=== PATIENT | male | born 1985 | race Two or more races ===

== ENCOUNTER 2024-03-01 19:28 | Emergency (ER) | payer MEDICAID, SELFPAY ==
[2024-03-01 20:09] VITALS: BP 144/94; PULSE 87; RESP 18; TEMP 36.6; O2SAT 99
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
[2024-03-01 20:39] LABS: Basophils # (Auto) 0.1 Thou/mm3 (0.0-0.2); Basophils % (Auto) 1 % (0-2.5); Eosinophils # (Auto) 0.2 Thou/mm3 (0.0-0.5); Eosinophils % (Auto) 3 % (0-10); Hematocrit 46.6 % (41.0-53.0); Hemoglobin 15.9 g/dL (13.5-16.0); Immature Granulocytes % (Auto) 0 % (0-0); Immature Granulocytes Auto 0.01 Thou/mm3 (0.00-0.00); Lymphocytes # (Auto) 2.5 Thou/mm3 (1.0-4.8); Lymphocytes % (Auto) 31 % (10-50); Mean Corpuscular HGB Conc 34.1 g/dl (31.0-37.0); Mean Corpuscular Hemoglobin 29.4 pg (25.0-35.0); Mean Corpuscular Volume 86 fL (80-100); Monocytes # (Auto) 0.6 Thou/mm3 (0.0-0.8); Monocytes % (Auto) 8 % (0-12); Neutrophils # (Auto) 4.6 Thou/mm3 (1.8-7.7); Neutrophils % (Auto) 58 % (37-80); Nucleated Red Blood Cell % 0 /100 WBC (0); Platelet Count 259 Thou/mm3 (140-440); RDW Standard Deviation 38.5 fL (35.1-43.9)
[2024-03-01 20:58] LABS: INR 1.1 (0.9-1.3); Partial Thromboplastin Time 27.5 Seconds (22.0-36.0); Prothrombin Time 11.7 Seconds (9.0-12.2)
[2024-03-01 21:12] LABS: Alanine Aminotransferase 69 U/L (10-49); Albumin, Serum 5.1 gm/dL (3.5-5.0); Albumin/Globulin Ratio 1.8 (1.2-2.2); Alkaline Phosphatase 129 U/L (46-116); Anion Gap 7 (7-16); Aspartate Amino Transferase 23 U/L (0-34); BUN/Creatinine Ratio 9 Ratio (12-20); Bilirubin,Total 0.5 mg/dL (0.3-1.2); Blood Urea Nitrogen 9 mg/dL (9-23); Calcium 10.1 mg/dL (8.3-10.6); Calcium (Corrected) 10.1 mg/dL (8.5-10.1); Carbon Dioxide 27.5 mMol/L (20.0-31.0); Chloride 103 mMol/L (98-107); Estimated Creatinine Clearance 144.1 mL/min (>60); Globulin 2.9 gm/dL (2.3-3.5); Glucose 112 mg/dL (74-106); Osmolality,Calculated 273 (275-295); Sodium 137 mMol/L (136-145); eGFR > 60 See Note
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
[2024-03-01 22:12] LABS: OBS Card Lot # 23001; OBS Developer Lot # 23003; OBS Performed By boted; OBS QC OK? Yes; Occult Blood, Stool Positive (Negative)
[2024-03-02 00:41] VITALS: BP 121/77; PULSE 61; RESP 16; TEMP 36.7; O2SAT 99
== END 2024-03-02 00:42 | disposition home or self-care (01) ==
PROVIDERS: Physician Assistant; Emergency Provider Emergency Medicine
DX: K64.8 Other hemorrhoids (principal); K92.1 Melena
CPT/HCPCS: 36415; 74177; 80053; 82270; 85025; 85610; 85730; 99285; A4649; Q9967

== ENCOUNTER 2024-10-27 00:02 | Emergency (ER) | payer MEDICAID, SELFPAY ==
[2024-10-27 00:04] VITALS: BMI 35.8
[2024-10-27 00:23] VITALS: BP 134/89; PULSE 89; RESP 18; TEMP 37.3; O2SAT 96
--- NOTE | 2024-10-27 00:26 | XR_ITS ---
Examination: CT abdomen and pelvis without contrast. Coronal 3-D reconstructions. Sagittal 2-D reconstructions. Date and time of exam:October 27, 2024 0106 hours Comparison March 01, 2024. INDICATIONS: Blood in the stool with abdominal pain beginning one month ago CTDI: vol (mGy): 10.81 DLP: (mGycm): 702. Technique: Axial images of the abdomen have been obtained, 3 mm slice thickness Intravenous contrast material has not been administered. Low dose protocols were performed. One or more of the following dose reduction techniques were used; automated exposure control, adjustment of the mA and/or KV according to patient size, use of iterative reconstruction technique. Findings: Fatty infiltration throughout the liver, liver is mildly irregular in contour The spleen is not enlarged Contracted gallbladder No pancreatic or adrenal mass. No renal or ureteral calculi, no hydronephrosis Aorta normal size Normal appendix Moderate stool throughout the colon, no nonspecific colitis pattern Negative for diverticulitis Rectal wall does not show thickening No prostatomegaly Transpedicular lumbar fusion L4-S1 with disc spacers Impression : Moderate stool throughout the colon. Negative for colitis or proctitis pattern
[2024-10-27 01:03] LABS: Collection Type, Urine Clean Catch
[2024-10-27 01:08] LABS: Bilirubin,Urine Negative (Negative); Blood,Urine Negative (Negative); Clarity,Urine Clear (Clear/Hazy); Color,Urine Yellow (Lt Yel-Yel); Glucose, Urine Negative (Negative); Ketones,Urine Negative (Negative); Leukocyte Esterase,Urine Negative (Negative); Nitrite,Urine Negative (Negative); PH,Urine 6.0 (5.0-7.0); Protein,Urine Trace (Neg - Trace); RBC,Urine 3 /hpf (0-3); Specific Gravity,Urine 1.029 (1.001-1.035); Squamous Epithelial Cell,Urine < 1 /hpf (0-5); Urobilinogen,Urine Negative mg/dL (0.0-1.0); WBC,Urine 1 /hpf (0-5)
[2024-10-27 01:30] LABS: Basophils # (Auto) 0.0 Thou/mm3 (0.0-0.2); Basophils % (Auto) 1 % (0-2.5); Eosinophils # (Auto) 0.3 Thou/mm3 (0.0-0.5); Eosinophils % (Auto) 4 % (0-10); Hematocrit 44.1 % (41.0-53.0); Hemoglobin 14.4 g/dL (13.5-16.0); Immature Granulocytes Auto 0.02 Thou/mm3 (0.00-0.00); Lymphocytes # (Auto) 2.5 Thou/mm3 (1.0-4.8); Lymphocytes % (Auto) 31 % (10-50); Mean Corpuscular HGB Conc 32.7 g/dl (31.0-37.0); Mean Corpuscular Hemoglobin 27.9 pg (25.0-35.0); Mean Corpuscular Volume 85 fL (80-100); Monocytes # (Auto) 0.7 Thou/mm3 (0.0-0.8); Monocytes % (Auto) 9 % (0-12); Neutrophils # (Auto) 4.4 Thou/mm3 (1.8-7.7); Neutrophils % (Auto) 55 % (37-80); Nucleated Red Blood Cell # 0.00 Thou/mm3 (0.00-0.00); Nucleated Red Blood Cell % 0 /100 WBC (0); Platelet Count 244 Thou/mm3 (140-440); RDW Standard Deviation 42.0 fL (35.1-43.9); Red Blood Count 5.17 Miln/mm3 (4.50-5.90); White Blood Count 8.0 Thou/mm3 (3.8-10.6)
[2024-10-27 01:51] LABS: Alanine Aminotransferase 212 U/L (10-49); Albumin, Serum 4.3 gm/dL (3.5-5.0); Albumin/Globulin Ratio 1.5 (1.2-2.2); Alkaline Phosphatase 130 U/L (46-116); Anion Gap 10 (7-16); Aspartate Amino Transferase 92 U/L (0-34); BUN/Creatinine Ratio 10 Ratio (12-20); Bilirubin,Total 0.3 mg/dL (0.3-1.2); Blood Urea Nitrogen 8 mg/dL (9-23); Calcium 10.0 mg/dL (8.3-10.6); Calcium (Corrected) 10.0 mg/dL (8.5-10.1); Carbon Dioxide 26.7 mMol/L (20.0-31.0); Chloride 103 mMol/L (98-107); Creatinine (Component) 0.8 mg/dL (0.6-1.3); Estimated Creatinine Clearance 140.5 mL/min (>60); Globulin 2.8 gm/dL (2.3-3.5); Glucose 131 mg/dL (74-106); Lipase 31 U/L (12-53); Osmolality,Calculated 279 (275-295); Potassium 3.8 mMol/L (3.4-5.1); Sodium 140 mMol/L (136-145); Total Protein 7.1 gm/dL (5.7-8.2); eGFR > 60 See Note
--- NOTE | 2024-10-27 02:00 | PRELIM_ITS ---
CT scan of the abdomen and pelvis without intravenous contrast (axial sections with sagittal and coronal reformats) October 27, 2024 0106 hours Clinical History: abd pain No prior study is available for comparison. Findings: Left basilar atelectasis is seen. There is mild hepatomegaly with fatty infiltration of the liver. The gallbladder is contracted. The pancreas, spleen, kidneys and adrenals are unremarkable on this noncontrast study. No evidence of bowel obstruction. A moderate amount of fecal material is noted within the colon. The appendix is within normal limits (images [id number]). There is no mesenteric or retroperitoneal adenopathy. The urinary bladder is incompletely distended at the time of the examination and appears mildly thick walled. There is no free fluid or free air. A calcific density is seen in the pelvis, likely representing a phlebolith. Postoperative changes in the lower lumbar spine are seen. Impression: No evidence of bowel obstruction, free air or abscess. Moderate constipation. Other findings as described above. Report Electronically Signed By: Javi Madden 10/27/2024 1:59:21 AM [EST]
--- NOTE | 2024-10-27 02:24 | PD.EDABDPN ---
ED Abdominal Pain RME/HPI General Chief Complaint: GI Bleed Stated complaint: BLOOD IN STOOL Time seen by provider: 10/27/24 00:24 Arrival date/time: 10/27/24 00:02 This is a case of 39-year-old male who have history of fatty liver GERD and hemorrhoids came in in the emergency room due to abdominal pain on and off for 4 weeks located on periumbilical area and epigastric area associated with nausea on and off constipation and diarrhea patient noted to have fresh blood in stool today thus decided to sought consult here in the emergency room no other symptoms noted Limitations: no limitations Related Data Previous Rx's ?Medication ?Instructions ?Recorded famotidine 40 mg tablet (Pepcid) 40 mg PO QDAY #30 tabs 04/01/23 docusate sodium 100 mg capsule 100 mg PO QDAY PRN constipation 10/27/24 (Colace) #30 caps famotidine 20 mg tablet 20 mg PO BID #60 tabs 10/27/24 hydrocortisone acetate 25 mg 25 mg AL BID #12 ea 10/27/24 rectal suppository (Anusol-HC) omeprazole 20 mg capsule,delayed 20 mg PO QDAY #30 caps 10/27/24 release Allergies Allergy/AdvReac Type Severity Reaction Status Date / Time No Known Allergies Allergy Verified 10/27/24 00:13 Review of Systems Review of Systems Systems Reviewed: All systems reviewed, normal except as documented Constitutional Constitutional: Reports system reviewed and no additional complaints, except as documented, Reports as per HPI, Denies chills and Denies fever(s) ENT Ears, Nose, Mouth, and Throat: Denies dysphagia and Denies odynophagia Cardiovascular Cardiovascular: Reports system reviewed and no additional complaints, except as documented, Reports as per HPI, Denies chest pain and Denies dyspnea Respiratory Respiratory: Reports system reviewed and no additional complaints, except as documented, Reports as per HPI, Denies cough and Denies dyspnea Gastrointestinal Gastrointestinal: Reports system reviewed and no additional complaints, except as documented, Reports as per HPI, Reports abdominal pain, Denies belching, Denies bloating, Denies change in bowel habits, Denies change in stool character, Denies coffee ground emesis, Denies constipation, Denies cramping, Reports diarrhea, Denies dyspepsia, Denies dysphagia, Denies early satiety, Denies excessive flatus, Denies fecal incontinence, Denies heartburn, Denies hematemesis, Reports hematochezia, Denies loose stools, Denies melena, Reports nausea, Denies odynophagia, Denies tenesmus and Denies vomiting Neurologic Neurologic: Reports system reviewed and no additional complaints, except as documented and Reports as per HPI Past Medical History Past Medical History CARDIAC: Positive Hypercholesterolemia and Hypertension; Negative Cardiac Disorders or Congestive Heart Failure RESPIRATORY: Negative Chronic Obstructive Pulmonary Disease (COPD) or Asthma GENITOURINARY: Negative Renal Disease ENDOCRINE: Negative Diabetes Mellitus Type 1 or Diabetes Mellitus Type 2 HEMATOLOGIC: Negative Sickle Cell Disease PSYCHO/SOCIAL: Positive Depression and Anxiety OTHER HISTORY: Negative Blood Transfusions or Cancer Family History FAMILY HISTORY: Negative Family Cardiac Disorders Surgical History SURGICAL: Negative Abdominal Surgery or Nephrectomy Social History SMOKING STATUS: Never smoker SUBSTANCE USE: does not use ED Exam General Limitations: Present no limitations General appearance: Present alert, in no apparent distress and other (Patient is awake alert oriented not in distress nontoxic looking well-hydrated well-nourished) Head Head exam: Present atraumatic, normocephalic and normal inspection Eye Eye exam: Present normal appearance, PERRL and EOMI ENT ENT exam: Present normal exam, normal oropharynx and mucous membranes moist Neck Neck exam: Present normal inspection, full ROM and trachea midline Chest Chest inspection: Present normal inspection and symmetric chest wall rise Respiratory Respiratory exam: Present normal lung sounds bilaterally; Absent respiratory distress, wheezes, stridor, accessory muscle use or prolonged expiratory phase Cardiovascular Cardiovascular exam: Present regular rate, normal rhythm and normal heart sounds; Absent bradycardia, tachycardia, irregular rhythm, systolic murmur or diastolic murmur Abdominal Exam Abdominal exam: Present soft, tenderness (Mild tenderness epigastric area and periumbilical area no guarding no rebound no rigidity negative psoas negative straight or negative Rovsing's and McBurney's no Hernandez sign negative CVA tenderness) and normal bowel sounds; Absent distention, guarding, rebound, rigidity, diminished bowel sounds, hyperactive bowel sounds, hypoactive bowel sounds, organomegaly, psoas sign, obturator sign, Hernandez's sign, Rovsing's sign or tenderness at McBurney's Point Extremities Exam Extremities exam: Present normal inspection and full ROM Back Exam Back exam: Present normal inspection and full ROM Neurological Exam Neurological exam: Present alert, oriented X3, CN II-XII intact, normal gait and reflexes normal; Absent motor sensory deficit Psychiatric Psychiatric exam: Present normal affect and normal mood Skin Skin exam: Present warm, dry, intact and normal color Course Quality Measures none Orders Category Date Time Status CT abdomen pelvis wo con Stat Exams 10/27/24 00:26 Taken CBC Stat Lab 10/27/24 01:23 Completed Comprehensive Metabolic Panel Stat Lab 10/27/24 01:23 Completed Lipase Stat Lab 10/27/24 01:23 Completed Urinalysis Stat Lab 10/27/24 00:55 Completed Vital Signs Vital signs: Vital Signs Temperature 99.2 F 10/27/24 00:23 Pulse Rate 89 10/27/24 00:23 Respiratory Rate 18 10/27/24 00:23 Blood Pressure 134/89 H 10/27/24 00:23 Pulse Oximetry (%) 96 10/27/24 00:23 Oxygen Delivery Method Room Air 10/27/24 00:23 Patient is afebrile not tachycardic not tachypneic BP stable not hypoxic oxygen saturation is 96 on room air Abdominal Pain MDM MDM Narrative MDM Narrative:: This is a case of 39-year-old male who have history of fatty liver GERD and hemorrhoids came in in the emergency room due to abdominal pain on and off for 4 weeks located on periumbilical area and epigastric area associated with nausea on and off constipation and diarrhea patient noted to have fresh blood in stool today thus decided to sought consult here in the emergency room no other symptoms noted physical examination patient is awake alert oriented not in distress nontoxic looking well-hydrated well-nourished no signs or symptoms of sepsis dehydration or acute abdomen abdominal exam is benign nonsurgical no guarding no rebound no rigidity mild tenderness epigastric area and periumbilical area no guarding no rebound no rigidity negative psoas negative straight or negative Rovsing's and McBurney's # negative CVA tenderness the rest of the physical examination and neurological exam is normal and unremarkable vital signs stable BP stable not tachycardic not tachypneic not hypoxic blood test showed no leukocytosis no anemia platelet is normal no electrolyte imbalance kidney function is normal liver function is elevated AST ALT and alk phos is elevated urinalysis is normal CT scan showed fatty liver and hepatomegaly this point patient will be discharged home with stable condition noted that the patient also have a external hemorrhoid active bleeding noted no fissure chaperoned by the RN this point the hematochezia is due to hemorrhoid patient was advised to see a pharmacy sales representative for further evaluation and treatment of gastritis and to be referred also with colorectal doctor for hemorrhoids patient was prescribed with famotidine and omeprazole for gastritis and Anusol for hemorrhoid patient was also advised to refrain fatty food avoid skipping of meals modified diet is advised patient will continue to monitor his liver function by PCP as an outpatient and will follow-up with the GI specialist also for hepatomegaly and fatty liver for any worsening symptoms he is informed to return in the emergency room immediately or call 911 Patient was discharged with comfortable condition walking with stable gait. Patient verbalized no further complains explained diagnosis and answered patient question. Patient is comfortable with the proposed management plan including the need to follow up with his/her primary care physician and any specialist if applicable Discussed patient for any urgent condition or worsening sx, He/She needed to go to emergency room immediately or call 911. Patient acknowledge the responsibility to follow up as instructed and to monitor her/his symptoms. For any persistence of the symptoms for more than 3-5 days return precaution advised. Discussed the result of the test and was given printed discharge instruction Patient data External records reviewed:: [facility] previous records Clinical information provided by:: patient Social determinants that could affect healthcare access:: none Patient has the following chronic illnesses:: None How is presenting disease/condition affected by chronic disease/condition?: no chronic disease Evaluation data The following diagnostics were reviewed and interpreted by me:: lab results and radiology exam(s) Lab and/or radiology exams considered but not ordered:: Reviewed Interpretation Summary: Reviewed Medications / Prescriptions Medications or Prescriptions considered but not ordered:: Given Medication administrations:: Given Consultations Consultation(s) initiated? (list below): No Diagnosis Differential diagnosis abdominal pain: abdominal pain, acute appendicitis, calculus of kidney, constipation, diverticulitis, endometriosis, gastroenteritis, pancreatitis and small bowel obstruction Most likely diagnosis given after review of the tests above:: Abdominal pain constipation gastritis Admission Indicated Admission indicated?: not indicated Explain why admission is indicated or not indicated:: Not indicated Admission Request Was there a request for admission?: No Admission Attestation Admission request attestation: Not indicated Disposition Plan Disposition Plan: Discharge Discharge Attestation Discharge Attestation: The patient and all family members were given an opportunity to ask questions and understood the discharge instructions. Discharge instructions specifically effects, indications for sooner follow up or return to the emergency department, and the expected course of current diagnosis. Patient condition: Stable Discharge Plan Plan Patient Disposition: HOME (Self Care) Patient condition on transfer: Stable Prescriptions/Referrals Prescriptions/Med Rec: New famotidine 20 mg tablet 20 mg PO BID Qty: 60 0RF omeprazole 20 mg capsule,delayed release(DR/EC) 20 mg PO QDAY Qty: 30 0RF hydrocortisone acetate [Anusol-HC] 25 mg suppository 25 mg AL BID Qty: 12 0RF docusate sodium [Colace] 100 mg capsule 100 mg PO QDAY PRN (Reason: constipation) Qty: 30 0RF No Action famotidine [Pepcid] 40 mg tablet 40 mg PO QDAY Qty: 30 0RF Referrals: No Primary/Family,Physician [Primary Care Provider] - In 1 week Problem List Clinical Impression: Abdominal pain, Gastritis, Constipation, External hemorrhoids, Hepatomegaly, Fatty liver, Elevated liver enzymes Patient/Caregiver Discharge Instructions Education Materials: Tests for Liver Disease, Abdominal Pain, Nonalcoholic Fatty Liver ..., ED Constipation (Adult), ED Gastritis (Adult), ED Hemorrhoids Additional Instructions: Follow-up with your primary care physician in 2 days for reevaluation and to be referred to pharmacy sales representative for further evaluation and treatment of gastritis for possible EGD you need also to be referred to colorectal surgeon for further evaluation and treatment of your hemorrhoid recurrence persistent worsening symptoms or any emergent concern call 911 or go to the nearest emergency room high-fiber diet increase water intake keep hydrated is advised avoid spicy food avoid skipping of meals avoid fat fried high cholesterol food avoid alcohol soda or coffee follow-up with your pharmacy sales representative for further evaluation and treatment of hepatomegaly elevated liver enzyme and fatty liver Print Language: Korean Stand Alone Forms: Vianey Award Info., Patient Portal Info Letter PA/INTERMEDIATE MANAGER Supervising Physician PA/RUPAL Supervising Physician: dr stone
== END 2024-10-27 02:34 | disposition home or self-care (01) ==
PROVIDERS: Nurse Practitioner Family; Emergency Provider Family Medicine
DX: K29.71 Gastritis, unspecified, with bleeding (principal); K64.4 Residual hemorrhoidal skin tags; K59.00 Constipation, unspecified; K76.0 Fatty (change of) liver, not elsewhere classified; I10 Essential (primary) hypertension; E78.00 Pure hypercholesterolemia, unspecified
CPT/HCPCS: 36415; 74176; 80053; 81001; 83690; 85025; 99283

== ENCOUNTER 2024-12-16 10:48 | Outpatient (AMB) | payer MEDICAID, SELFPAY ==
[2024-12-16 11:17] VITALS: BP 137/87; PULSE 68; RESP 18; TEMP 36.4; O2SAT 96; BMI 33.3
--- NOTE | 2024-12-16 11:17 | GSCOFFNT_ITS ---
Vital Signs - [facility] 12/16/24 11:17 Height 1.73 m Height Method Measured Weight 99.365 kg Weight Measurement Method Standing Scale BMI 33.3 BP 137/87 H Blood Pressure Source Automatic Cuff Blood Pressure Location Left Upper Arm Position Sitting Respiration 18 Pulse 68 Pulse Source Monitor Temp 97.5 F Temp Source Temporal Artery Scan Pulse Oximetry (%) 96 Oxygen Delivery Method Room Air Med/Allergies Allergies & Medications Allergies No Known Allergies Allergy (Verified 12/16/24 11:18) Medication Reconciliation famotidine 40 mg tablet (Pepcid) 40 mg PO QDAY #30 tabs 04/01/23 [Rx Confirmed 12/16/24] docusate sodium 100 mg capsule (Colace) 100 mg PO QDAY PRN constipation #30 caps 10/27/24 [Rx Confirmed 12/16/24] famotidine 20 mg tablet 20 mg PO BID #60 tabs 10/27/24 [Rx Confirmed 12/16/24] hydrocortisone acetate 25 mg rectal suppository (Anusol-HC) 25 mg HI BID #12 ea 10/27/24 [Rx Confirmed 12/16/24] omeprazole 20 mg capsule,delayed release 20 mg PO QDAY #30 caps 10/27/24 [Rx Confirmed 12/16/24] MA Intake Visit Data Collection New Patient or Established: New Patient (never been to [facility]) Seen by Clinical Staff ONLY (RN/MA): No Reason for Visit:: REFERRAL HEMORRHOIDS Pain Present Currently: No Pain Scale Used: Santiago-Tyler/Numerical Plant Physiology Teacher Required: Yes PCP or OBGYN visit in last 3 months: Yes Hx Now: No Do You Feel Safe at Home: Yes Authorities Contacted: N/A Smoking Status Smoking Status: Never smoker Immunization / Flu Flu Vaccine in the Last 12 Months: Yes Flu Vaccine Exclusion Criteria: Already Received Past Medical History Past Medical History CARDIAC: Positive Hypercholesterolemia and Hypertension; Negative Cardiac Disorders or Congestive Heart Failure RESPIRATORY: Negative Chronic Obstructive Pulmonary Disease (COPD) or Asthma GENITOURINARY: Negative Renal Disease ENDOCRINE: Negative Diabetes Mellitus Type 1 or Diabetes Mellitus Type 2 HEMATOLOGIC: Negative Sickle Cell Disease PSYCHO/SOCIAL: Positive Depression and Anxiety OTHER HISTORY: Negative Blood Transfusions or Cancer Family History FAMILY HISTORY: Negative Family Cardiac Disorders Surgical History SURGICAL: Negative Abdominal Surgery or Nephrectomy Social History SMOKING STATUS: Smoking status: Never smoker ALCOHOL: Alcohol Intake: Never ALCOHOL FREQUENCY: Alcohol Intake Frequency: A Few Times a Month HPI HPI Narrative HISTORY OF PRESENT ILLNESS I, Samia Hightower, have obtained verbal consent from the patient, to be recorded during this encounter which may include, but not limited to, medical history, examination, treatment plans, and relevant health information.? Patient was informed that recording will be read and reviewed by myself before inclusion in the medical chart. The patient is a male who presents for evaluation of symptomatic hemorrhoids. He is accompanied by an overhead cleaner maintainer. He has been experiencing hemorrhoids for the past month, initially presenting with bleeding during bowel movements. Recently, he has noticed itching and a burning sensation during defecation. He reports no protruding tissue or use of any treatments. His bowel movements are generally normal, although he recalls two instances of hard stools. He does not strain during defecation and has not observed blood in his stool, but notes significant blood on the toilet paper after wiping. He reports no weight loss but mentions feeling full after consuming small amounts of food. He also experiences weakness, fatigue, and abdominal pain. He has not noticed any changes in his stool shape, describing it as dry. Despite drinking several glasses of water daily, he continues to experience these symptoms. He does not consume fiber and expresses concern about the bleeding. He has not used suppositories since they were prescribed and has never undergone a colonoscopy. He reports no family history of colon or rectal cancer. He expresses fear of colon cancer due to his symptoms. PMH: HTN PSHx: Back surgery Meds: Currently taking something for cough but denies any other medications Allergies:NKDA Family hx: No known colon or rectal CA ROS Review of Systems Systems Reviewed: All systems reviewed, normal except as documented Objective/Exam General General Appearance: alert, cooperative and well groomed Resp Respiratory exam: Absent respiratory distress Rectal Rectal exam: Present normal inspection and other (no external hemorrhoids noted. ANEL normal tone and no palpable masses, but anoscopy was aborted as pt had difficulty tolerating) Assessment & Plan Diagnosis / Problem List (1) Rectal bleeding: Status: Acute Assessment & Plan: Symptoms suggest internal hemorrhoids, including bleeding, itching, and burning during bowel movements. No external hemorrhoids were observed upon examination. A handout detailing methods to manage bowel movements was provided, emphasizing the importance of fiber intake to prevent hard stools. Warm water baths were re commended to alleviate bleeding and itching. Suppositories should be continued as needed. A colonoscopy will be scheduled, with instructions provided on pre- procedure preparation, including fasting the day before and taking a prescribed medication for bowel cleansing. During the procedure, medication will be administered to ensure comfort and relaxation, with the patient breathing independently. Risks include potential bleeding post-procedure, exacerbation of hemorrhoids due to bowel preparation, and a rare risk of colon perforation requiring emergency surgery. Pt expressed understanding and is agreeable to proceeding Plan: Schedule for diagnostic colonoscopy due to change in bowel habits Office Procedures GNS Level of Care Nursing/Assessment Patient Status: Initial/New Patient Nursing Assessment/Reassesment: Medication Reconciliation, Update PMH in EMR and Vital Signs Coordination of Care: Complex Care and Chronic Disease 1-5, Education Complex Pt/Fam, Consent,records obtained, informed consent, Results/Orders obtained and Staff clarify orders Special Needs: Language special needs New Patient Charge New Patient Point Assignment: [id number] New Patient Point Charge: PRESIDENT & CEO Level 3 ([id number]) Patient Portal Questionaires Social History Tobacco History Smoking Status: Never smoker Alcohol History Alcohol Intake: Never Alcohol Intake Frequency: A Few Times a Month Domestic Abuse History Do You Feel Safe at Home: Yes Review of Systems Report any current symptoms Only answer those that you have currently: Past Medical History Past Medical History Have you ever been diagnosed with any of the following: Cardiology Problems Hypercholesterolemia: Yes Congestive Heart Failure: No Hypertension: Yes Respiratory Problems Chronic Obstructive Pulmonary Disease (COPD): No Asthma: No Genital/Urinary Problems Renal Disease: No Endocrine Problems Diabetes Mellitus Type 1: No Diabetes Mellitus Type 2: No Blood Problems Sickle Cell Disease: No Psychologic Problems Depression: Yes Anxiety: Yes Other Problems Blood Transfusions: No Cancer: No
== END 2024-12-16 11:55 | disposition home or self-care (01) ==
PROVIDERS: PCP Family Medicine; Referring Provider Family Medicine; Supervising Provider Surgery; Visit Provider Surgery
DX: K62.5 Hemorrhage of anus and rectum (principal); R19.4 Change in bowel habit; I10 Essential (primary) hypertension
CPT/HCPCS: 99203; G0463

== ENCOUNTER 2025-01-28 07:20 | Day surgery (SDC) | payer MEDICAID, SELFPAY ==
[2025-01-27 14:09] VITALS: BMI 32.8
[2025-01-28] VITALS (11 sets, daily range): BP systolic 114–134; BP diastolic 80–94; PULSE 63–74; RESP 11–22; TEMP 36.3; O2SAT 95–100; BMI 34.1
[2025-01-28] MEDS: RINGERS LACTATED 500 ML 500 ML 20 ML IV (08:59)
[2025-01-28] MEDS: MIDAZOLAM INJ 1 MG/ML VIAL 2 ML (ASD USE ONLY) 2 MG IVP (08:59)
[2025-01-28] MEDS: fentaNYL CIT INJ 50 mCg/ML AMP 2ML (ASD USE ONLY) IVP (09:01)
== END 2025-01-28 09:55 | disposition home or self-care (01) ==
PROVIDERS: PCP Family Medicine; Referring Provider Surgery; Visit Provider Surgery
PROC: 0DBE8ZX Excision of Large Intestine, Via Natural or Artificial Opening Endoscopic, Diagnostic (ICD-10-PCS; CPT 45380; principal; 2025-01-28 08:30)
DX: D12.0 Benign neoplasm of cecum (principal); D12.3 Benign neoplasm of transverse colon; K64.8 Other hemorrhoids; I10 Essential (primary) hypertension
CPT/HCPCS: 45380; A4649; J1200; J2250; J3010; J7120

== ENCOUNTER 2025-02-24 14:10 | Outpatient (AMB) | payer MEDICAID, SELFPAY ==
--- NOTE | 2025-02-24 14:30 | GSCOFFNT_ITS ---
Vital Signs - [facility] 02/24/25 14:31 Height 1.7 m Height Method Measured Weight 92.221 kg Weight Measurement Method Standing Scale BMI 31.8 BP 131/86 H Blood Pressure Source Automatic Cuff Blood Pressure Location Left Upper Arm Position Sitting Respiration 18 Pulse 99 Pulse Source Monitor Temp 97.5 F Temp Source Temporal Artery Scan Pulse Oximetry (%) 97 Oxygen Delivery Method Room Air Med/Allergies Allergies & Medications Allergies No Known Allergies Allergy (Verified 02/24/25 14:32) Medication Reconciliation peg 3350-electrolytes 236 gram-22.74 gram-6.74 gram-5.86 gram solution (Golytely) 240 ml PO Q10M #4,000 mL 01/20/25 [Rx Confirmed 02/24/25] atorvastatin 40 mg tablet (Lipitor) 40 mg PO QDAY 01/27/25 [History Confirmed 02/24/25] carvedilol 3.125 mg tablet 3.125 mg PO BID 01/27/25 [History Confirmed 02/24/25] pantoprazole 20 mg tablet,delayed release 20 mg PO QDAY 01/27/25 [History Confirmed 02/24/25] MA Intake Visit Data Collection New Patient or Established: Established Patient (seen at [facility] within 3 years) Seen by Clinical Staff ONLY (RN/MA): No Reason for Visit:: COLONOSCOPY F/U Pain Present Currently: No Pain Scale Used: Santiago-Tyler/Numerical Simulation Engineer Required: Yes PCP or OBGYN visit in last 3 months: Yes Hx Now: No Do You Feel Safe at Home: Yes Authorities Contacted: N/A Smoking Status Smoking Status: Never smoker Immunization / Flu Flu Vaccine in the Last 12 Months: Yes Flu Vaccine Exclusion Criteria: Already Received Past Medical History Past Medical History NEUROLOGIC: Negative Neurological Disorders or Seizures CARDIAC: Positive Cardiac Disorders, Hypercholesterolemia and Hypertension; Negative Congestive Heart Failure RESPIRATORY: Negative Chronic Obstructive Pulmonary Disease (COPD) or Asthma GASTROINTESTINAL: Positive Gastrointestinal Disorders (GASTRITIS) and Hemorrhoids GENITOURINARY: Negative Genitourinary Disorders or Renal Disease ENDOCRINE: Negative Endocrine Disorders, Diabetes Mellitus Type 1 or Diabetes Mellitus Type 2 HEMATOLOGIC: Negative Blood Disorders or Sickle Cell Disease PSYCHO/SOCIAL: Positive Depression and Anxiety OTHER HISTORY: Negative Blood Transfusions, Anesthesia Reactions or Cancer Family History FAMILY HISTORY: Negative Family Cardiac Disorders Surgical History SURGICAL: Negative Abdominal Surgery or Nephrectomy Social History SMOKING STATUS: Smoking status: Never smoker ALCOHOL: Alcohol Intake: Never ALCOHOL FREQUENCY: Alcohol Intake Frequency: A Few Times a Month HOUSING: Housing: House HPI HPI Narrative Spoke to patient with in person spanish medical interpreter 39M who presented with episodic rectal bleeding s/p diagnostic colonoscopy 01/2025 here for planned follow-up. Patient reports feeling well overall, he has not had any recent straining and so has not noticed any recent bleeding. On his colonoscopy he had 2 very small polyps which actually turned out to be benign colonic tissue ROS Review of Systems Systems Reviewed: All systems reviewed, normal except as documented Objective/Exam General General Appearance: alert, cooperative and well groomed Resp Respiratory exam: Absent respiratory distress Assessment & Plan Diagnosis / Problem List (1) Encounter to discuss colonoscopy results: Status: Acute Assessment & Plan: 39M who presented with episodic rectal bleeding which has since resolved, now status post colonoscopy 01/2025 with overall normal findings. I explained that he should undergo next screening in 10 years. All questions were answered and patient is encouraged to reach out with any concerns or questions Office Procedures GNS Level of Care Nursing/Assessment Patient Status: Established Patient Nursing Assessment/Reassesment: Medication Reconciliation, Update PMH in EMR and Vital Signs Coordination of Care: Complex Care and Chronic Disease 1-5, Education Complex Pt/Fam, Consent,records obtained, informed consent, Results/Orders obtained and Staff clarify orders Special Needs: Language special needs Established Patient Charge Established Patient Point Assignment: 95 Established Patient Point Charge: EP Level 3 (80-115) Patient Portal Questionaires Social History Living Situation History Housing: House Tobacco History Smoking Status: Never smoker Alcohol History Alcohol Intake: Never Alcohol Intake Frequency: A Few Times a Month Domestic Abuse History Do You Feel Safe at Home: Yes Review of Systems Report any current symptoms Only answer those that you have currently: Past Medical History Past Medical History Have you ever been diagnosed with any of the following: Neurological Problems Seizures: No Cardiology Problems Hypercholesterolemia: Yes Congestive Heart Failure: No Hypertension: Yes Respiratory Problems Chronic Obstructive Pulmonary Disease (COPD): No Asthma: No Stomache/Intestinal Problems Hemorrhoids: Yes Genital/Urinary Problems Renal Disease: No Endocrine Problems Diabetes Mellitus Type 1: No Diabetes Mellitus Type 2: No Blood Problems Sickle Cell Disease: No Psychologic Problems Depression: Yes Anxiety: Yes Other Problems Blood Transfusions: No Anesthesia Reactions: No Cancer: No
[2025-02-24 14:31] VITALS: BP 131/86; PULSE 99; RESP 18; TEMP 36.4; O2SAT 97; BMI 31.8
== END 2025-02-24 14:37 | disposition home or self-care (01) ==
PROVIDERS: PCP Family Medicine; Referring Provider Family Medicine; Supervising Provider Surgery; Visit Provider Surgery
DX: Z71.2 Person consulting for explanation of examination or test findings (principal)
CPT/HCPCS: 99213; G0463